=== PATIENT | female | born 1960 | race Caucasian/White ===

== ENCOUNTER 2021-04-12 22:24 | Emergency (ER) | payer OTHER ==
[2021-04-13] MEDS ORDERED: PERCOCET 5-3251 EACH PO (00:55)
[2021-04-13] MEDS ORDERED: ENDOCET 5-3251 EACH PO (01:08)
== END 2021-04-13 01:31 | disposition home or self-care (01) ==
LOC: ER1 22:24
DX: S42.252A Displaced fracture of greater tuberosity of left humerus, initial encounter for closed fracture (principal); F17.210 Nicotine dependence, cigarettes, uncomplicated; W19.XXXA Unspecified fall, initial encounter
CPT/HCPCS: 71045; 73020; 73060; 73070; 73090; 73100; 93005; 96374; 96375; 99284; J1885; J2270; J2405

== ENCOUNTER → 2021-04-28 | Outpatient (CLI) | payer OTHER ==
[~2021-04-28] MED LIST: ENDOCET 5-3251 EACH PO; PERCOCET 5-3251 EACH PO
== END ==
LOC: KOH-I 08:07
DX: S42.202A Unspecified fracture of upper end of left humerus, initial encounter for closed fracture (principal)
CPT/HCPCS: 73200